=== PATIENT | male | born 1965 | race African-American/Black ===

== ENCOUNTER 2017-12-23 18:27 | Inpatient (IN) | payer OTHER ==
[2017-12-23 19:22] VITALS: BMI 23.8
--- NOTE | 2017-12-23 20:38 | HP ---
Admission [facility] - [facility] Chief Complaint: DEPENDENT ON ETOH, COCAINE, MARIJUANA AND PCP Allergies/Adverse Reactions: Allergies Allergy/AdvReac Type Severity Reaction Status Date / Time banana Allergy Severe Hives Verified 12/23/17 19:14 History of Present Illness: THE PT. CAME FOR H AND PE FOR ADMISSION TO THE REHAB. UNIT. Exam Limitations: No Limitations - Ebola screening Have you traveled outside of the country in the last 21 days: No (N) Have you had contact with anyone from an Ebola affected area: No Have you been sick,other than usual withdrawal symptoms: No Do you have a fever: No - Review of Systems Constitutional: See HPI, Unintentional Wgt. Loss EENT: reports: See HPI Respiratory: reports: See HPI, Wheezing Cardiac: reports: No Symptoms Reported GI: reports: No Symptoms Reported, See HPI : reports: No Symptoms Reported, See HPI Musculoskeletal: reports: See HPI, Muscle Pain, Muscle Weakness Integumentary: reports: See HPI, Sweating Neuro: reports: No Symptoms reported, See HPI Endocrine: reports: See HPI Hematology: reports: See HPI Psychiatric: reports: Judgement Intact, Orientated x3, Anxious Patient History - Patient Medical History Hx Asthma: Yes Hx Seizures: No Hx Human Immunodeficiency Virus (HIV): Yes (DIAGNOSED IN 2002) Hx Hepatitis C: No Hx Depression: Yes (AND ANXIETY) Hx Suicide Attempt: No - Patient Surgical History Past Surgical History: Yes Hx Orthopedic Surgery: Yes (BACK SURGERY IN 2009) - Smoking Cessation Smoking history: Current every day smoker Have you smoked in the past 12 months: Yes Aproximately how many cigarettes per day: 20 Hx Chewing Tobacco Use: No Initiated information on smoking cessation: Yes 'Breaking Loose' booklet given: 12/23/17 - Substance & Tx. History Hx Alcohol Use: Yes Hx Substance Use: Yes Substance Use Type: Alcohol, Cocaine, Marijuana Hx Substance Use Treatment: Yes - Substances Abused Alcohol Route: Oral Frequency: Daily Amount used: BEER [id number]/ LIQUOR A FIFTH/D Age of first use: 23 Date of Last Use: 12/23/17 Cocaine Route: Smoking Frequency: Daily Amount used: $150/D Age of first use: 37 Date of Last Use: 12/23/17 Marijuana/Hashish Route: Smoking Frequency: Daily Amount used: A DIME/D Age of first use: 17 Date of Last Use: 12/23/17 PCP Route: Smoking Frequency: 1-2 times per week Amount used: $40/EACH TIME Age of first use: 18 Date of Last Use: 12/21/17 Family Disease History - Family Disease History Family History: Denies Admission Physical Exam [facility] - Vital Signs Vital Signs: Vital Signs - 24 hr 12/23/17 19:14 Temperature 97.2 F L Pulse Rate 71 Respiratory 16 Rate Blood Pressure 117/76 - Physical General Appearance: Yes: No Apparent Distress, Nourished, Appropriately Dressed , Anxious HEENTM: Yes: Hearing grossly Normal, Normocephalic, Normal Voice, CELE, Pharynx Normal Respiratory: Yes: Chest Non-Tender, Lungs Clear, Normal Breath Sounds, No Respiratory Distress, No Accessory Muscle Use Neck: Yes: No masses,lesions,Nodules, Supple, Trachea in good position Breast: Yes: Breast Exam Deferred, Axillae without masses Cardiology: Yes: Regular Rhythm, Regular Rate, S1, S2 Abdominal: Yes: Normal Bowel Sounds, Non Tender, Flat, Soft Back: Yes: Normal Inspection Musculoskeletal: Yes: full range of Motion, Gait Steady, Pelvis Stable Extremities: Yes: Normal Capillary Refill, Normal Range of Motion, Non-Tender Neurological: Yes: datacap developer II-XII NML intact, Fully Oriented, Alert, Motor Strength 5/5, Normal Mood/Affect, Normal Response Integumentary: Yes: Warm, Moist Lymphatic: Yes: Within Normal Limits - Diagnostic (1) EtOH dependence Current Visit: Yes Status: Chronic Qualifiers: Substance use status: uncomplicated Qualified Code(s): F10.20 - Alcohol dependence, uncomplicated (2) Cocaine dependence Current Visit: Yes Status: Chronic Qualifiers: Substance use status: uncomplicated Qualified Code(s): F14.20 - Cocaine dependence, uncomplicated (3) Cannabis dependence Current Visit: Yes Status: Chronic (4) Nicotine dependence Current Visit: Yes Status: Chronic Qualifiers: Nicotine product type: cigarettes (5) PCP dependence Current Visit: Yes Status: Chronic (6) AIDS Current Visit: Yes Status: Chronic (7) Anxiety and depression Current Visit: Yes Status: Chronic (8) Asthma Current Visit: Yes Status: Chronic Qualifiers: Asthma severity: unspecified severity Cleared for Admission [facility] - Detox or Rehab Claeared for Rehab Admission: Yes [facility] Breath Alcohol Content Breath Alcohol Content: 0 Urine Drug Screen - Results Drug Screen Negative: No Urine Drug Screen Results: THC-Marijuana, SRI-Cocaine, PCP-Phencyclidine Inpatient Rehab Admission - Initial Determination Free of communicable disease: No - Rehab Admission Criteria Previous failed treatment: No Poor recovery environment: No Comorbidities: No Lacks judgement: No Patient is meeting Inpatient Rehab admission criteria:: Yes
[2017-12-23] MEDS ORDERED: P-EPHED 60MG/TRIPROLIDI 2.5MG TABLET PO PRN (20:47)
[2017-12-23] MEDS ORDERED: MENTHOL/PHENOL 1 EACH UD MM PRN (20:47)
[2017-12-23] MEDS ORDERED: LOPERAMIDE HCL 2 MG CAPSULE PO PRN (20:47)
[2017-12-23] MEDS ORDERED: MAGNESIUM CITRATE 300 ML BOTTLE PO PRN (20:47)
[2017-12-23] MEDS ORDERED: MAGNESIUM HYDROX 2400MG/30ML ORAL SUSPENSION 30 ML CUP PO PRN (20:47)
[2017-12-23] MEDS ORDERED: MAG HYDROX/AL HYDROX/SIMETH 30 ML UNIT-DOSE CUP PO PRN (20:47)
[2017-12-23] MEDS ORDERED: NICOTINE POLACRILEX 4 MG GUM BC PRN (20:47)
[2017-12-23] MEDS ORDERED: ACETAMINOPHEN 325 MG TABLET (FP) PO PRN (20:47)
[2017-12-23] MEDS ORDERED: IBUPROFEN 400 MG TABLET (FP) PO PRN (20:47)
[2017-12-23] MEDS ORDERED: guaiFENesin/D-METHORPHAN HB 10 ML UNIT-DOSE CUPS PO PRN (20:47)
[2017-12-23] MEDS ORDERED: ALBUTEROL SO4 2.5/IPRATROPIUM 0.5 INH SOL 3 ML VIAL.NEB. NEB PRN (20:49)
[2017-12-24] MEDS: THIAMINE HCL 100 MG TABLET (FP) PO SCH ×2 (00:02→21:28)
[2017-12-24 09:46] LABS: HEMATOCRIT 38.3 % (35.4-49); HEMOGLOBIN 12.7 GM/dL (11.7-16.9); MCH 31.9 pg (25.7-33.7); MCHC 33.2 g/dl (32.0-35.9); MEAN CELL VOLUME 95.9 fl (80-96); MEAN PLT VOLUME 9.5 fl (7.5-11.1); PLATELET COUNT 217 K/MM3 (134-434); RBC 3.99 M/mm3 (4.00-5.60); RDW 14.5 % (11.9-15.9)
[2017-12-24] MEDS: PRENATAL VITAMINS W/ FOLIC ACID TABLET (FP) PO SCH (10:13)
[2017-12-24] MEDS: NICOTINE 21 MG/24 HOURS TOPICAL PATCH TD SCH (10:13)
[2017-12-24] MEDS: ALBUTEROL SO4 8 GM HFA INHALER IH PRN (10:57)
[2017-12-24 10:59] LABS: ALBUMIN 3.1 g/dl (3.4-5.0); ALK PHOS 61 U/L (45-117); ANION GAP 4 (8-16); BILIRUBIN,TOTAL 0.3 mg/dL (0.2-1.0); BLOOD UREA NITROGEN 12 mg/dL (7-18); CHLORIDE 107 mmol/L (98-107); CO2 33 mmol/L (21-32); GLUCOSE,RANDOM 84 mg/dL (74-106); POTASSIUM 3.9 mmol/L (3.5-5.1); SGOT/AST 16 U/L (15-37); SGPT/ALT 17 U/L (12-78); SODIUM 144 mmol/L (136-145)
--- NOTE | 2017-12-24 11:29 | EKG ---
Test Reason : Blood Pressure : / mmHG Vent. Rate : 059 BPM Atrial Rate : 059 BPM P-R Int : 184 ms QRS Dur : 100 ms QT Int : 410 ms P-R-T Axes : 066 079 068 degrees QTc Int : 405 ms SINUS BRADYCARDIA WITH MARKED SINUS ARRHYTHMIA OTHERWISE NORMAL ECG NO PREVIOUS ECGS AVAILABLE Confirmed by MD ANASTASIA, CEE ([id number]) on 12/24/2017 11:28:46 AM Referred By: Confirmed By:CEE OCONNOR MD
--- NOTE | 2017-12-24 12:31 | HP ---
Psychiatrist Admission - Data Date of interview: 12/24/17 Admission source: [facility] Identifying data: Patient is a 52 year old single male, without kids, domiciled , unemployed, and supported by Welfare. This is patient's first admission to rehab at [facility]. admitted to for alcohol and cocaine/crack dependence. Medical History: HIV, Asthma, Back surgery in 2009 Psychiatric History: Patient denies h/o psychiatric hospitalization, outpatient care, and suicide attempt. Physical/Sexual Abuse/Trauma History: Denies. Additional Comment: Patient reports 7.5 years of incarceration for distribution of crack/cocaine Vital Signs: Vital Signs - 24 hr 12/23/17 12/24/17 12/24/17 19:14 00:30 03:30 Temperature 97.2 F L Pulse Rate 71 Respiratory 16 18 18 Rate Blood Pressure 117/76 12/24/17 06:57 Temperature 96.0 F L Pulse Rate 64 Respiratory 18 Rate Blood Pressure 129/92 Allergies/Adverse Reactions: Allergies Allergy/AdvReac Type Severity Reaction Status Date / Time banana Allergy Severe Hives Verified 12/23/17 19:14 Date of last physical exam: 12/24/17 Concur with the findings of this exam: Yes - Substance Abuse/Tx History Hx Alcohol Use: Yes (6 beers per day) Hx Substance Use: Yes (Crack $40 daily) Substance Use Type: Cocaine Hx Substance Use Treatment: Yes ([facility] in September of 2017) Mental Status Exam - Mental Status Exam Alert and Oriented to: Time, Place, Person Cognitive Function: Good Patient Appearance: Well Groomed Mood: Euthymic Affect: Mood Congruent Patient Behavior: Appropriate Speech Pattern: Appropriate Voice Loudness: Moderately Soft/Quiet Thought Process: Intact, Goal Oriented Thought Disorder: Not Present Hallucinations: Denies Suicidal Ideation: Denies Homicidal Ideation: Denies Insight/Judgement: Poor Sleep: Fair Appetite: Fair Muscle strength/Tone: Normal Gait/Station: Normal Psychiatric Findings - Problem List ([place] 1, 2,3) (1) Alcohol dependence Current Visit: Yes Status: Acute (2) Cannabis dependence Current Visit: Yes Status: Chronic (3) Cocaine dependence Current Visit: Yes Status: Chronic Qualifiers: Substance use status: uncomplicated Qualified Code(s): F14.20 - Cocaine dependence, uncomplicated (4) Nicotine dependence Current Visit: Yes Status: Chronic Qualifiers: Nicotine product type: cigarettes (5) AIDS Current Visit: Yes Status: Chronic (6) Asthma Current Visit: Yes Status: Chronic Qualifiers: Asthma severity: unspecified severity (7) Substance induced mood disorder Current Visit: Yes Status: Acute - Initial Treatment Plan Initial Treatment Plan: Psycheducation provided. Rehab in progress. Observation.
[2017-12-24] MEDS: ELVITEG/COB/EMTRI/TENOFO (STRIBILD) TABLET -NF PO SCH ×2 (15:12→16:42)
[2017-12-24] MEDS: MELATONIN 5 MG TABLETS PO PRN (21:28)
[2017-12-24] MEDS: hydrOXYzine PAMOATE 25 MG CAPSULE (FP) PO PRN (21:28)
[2017-12-25] MEDS: NICOTINE 21 MG/24 HOURS TOPICAL PATCH TD SCH (10:07)
[2017-12-25] MEDS: PRENATAL VITAMINS W/ FOLIC ACID TABLET (FP) PO SCH (10:07)
[2017-12-25] MEDS: ELVITEG/COB/EMTRI/TENOFO (STRIBILD) TABLET -NF PO SCH (10:07)
[2017-12-25] MEDS: hydrOXYzine PAMOATE 25 MG CAPSULE (FP) PO PRN (21:38)
[2017-12-25] MEDS: THIAMINE HCL 100 MG TABLET (FP) PO SCH (21:38)
[2017-12-25] MEDS: MELATONIN 5 MG TABLETS PO PRN (21:38)
[2017-12-26] MEDS: ELVITEG/COB/EMTRI/TENOFO (STRIBILD) TABLET -NF PO SCH (10:13)
[2017-12-26] MEDS: PRENATAL VITAMINS W/ FOLIC ACID TABLET (FP) PO SCH (10:13)
[2017-12-26] MEDS: NICOTINE 21 MG/24 HOURS TOPICAL PATCH TD SCH (10:14)
[2017-12-26] MEDS: MELATONIN 5 MG TABLETS PO PRN (21:03)
[2017-12-26] MEDS: THIAMINE HCL 100 MG TABLET (FP) PO SCH (21:03)
[2017-12-26] MEDS: hydrOXYzine PAMOATE 25 MG CAPSULE (FP) PO PRN (21:05)
[2017-12-27] MEDS ORDERED: PT OWN MED DRAWER 7, Y5N ONE (08:58)
[2017-12-27] MEDS: ELVITEG/COB/EMTRI/TENOFO (STRIBILD) TABLET -NF PO SCH (09:43)
[2017-12-27] MEDS: PRENATAL VITAMINS W/ FOLIC ACID TABLET (FP) PO SCH (09:43)
[2017-12-27] MEDS: NICOTINE 21 MG/24 HOURS TOPICAL PATCH TD SCH (09:44)
[2017-12-27] MEDS: THIAMINE HCL 100 MG TABLET (FP) PO SCH (21:11)
[2017-12-27] MEDS: hydrOXYzine PAMOATE 25 MG CAPSULE (FP) PO PRN (21:13)
[2017-12-28] MEDS: NICOTINE 21 MG/24 HOURS TOPICAL PATCH TD SCH (09:35)
[2017-12-28] MEDS: PRENATAL VITAMINS W/ FOLIC ACID TABLET (FP) PO SCH (09:35)
[2017-12-28] MEDS: ELVITEG/COB/EMTRI/TENOFO (STRIBILD) TABLET -NF PO SCH (09:35)
[2017-12-28] MEDS: hydrOXYzine PAMOATE 25 MG CAPSULE (FP) PO PRN (21:25)
[2017-12-28] MEDS: THIAMINE HCL 100 MG TABLET (FP) PO SCH (21:25)
[2017-12-28] MEDS: MELATONIN 5 MG TABLETS PO PRN (21:26)
[2017-12-29 06:49] VITALS: BP 120/72; PULSE 51; TEMP 98
[2017-12-29] MEDS: ELVITEG/COB/EMTRI/TENOFO (STRIBILD) TABLET -NF PO SCH (09:51)
[2017-12-29] MEDS: PRENATAL VITAMINS W/ FOLIC ACID TABLET (FP) PO SCH (09:51)
[2017-12-29] MEDS: ALBUTEROL SO4 8 GM HFA INHALER IH PRN (09:53)
[2017-12-29] MEDS: NICOTINE 21 MG/24 HOURS TOPICAL PATCH TD SCH (09:53)
[2017-12-29] MEDS: hydrOXYzine PAMOATE 25 MG CAPSULE (FP) PO PRN (21:19)
[2017-12-29] MEDS: THIAMINE HCL 100 MG TABLET (FP) PO SCH (21:19)
[2017-12-29] MEDS: MELATONIN 5 MG TABLETS PO PRN (21:19)
== END 2017-12-29 23:09 | disposition left against medical advice (07) | DRG 770 ==
LOC: YASAS 18:27 → Y3W 21:10
PROVIDERS: ADMIT Psychiatry & Neurology Psychiatry; ATTEND Psychiatry & Neurology Psychiatry
PROC: HZ42ZZZ Group Counseling for Substance Abuse Treatment, Cognitive-Behavioral (ICD-10-PCS; principal; 2017-12-23)
DX: F10.20 Alcohol dependence, uncomplicated (principal); F14.20 Cocaine dependence, uncomplicated; F12.20 Cannabis dependence, uncomplicated; F16.20 Hallucinogen dependence, uncomplicated; F17.210 Nicotine dependence, cigarettes, uncomplicated; B20 Human immunodeficiency virus [HIV] disease; F19.24 Other psychoactive substance dependence with psychoactive substance-induced mood disorder; F41.8 Other specified anxiety disorders; J45.909 Unspecified asthma, uncomplicated
CPT/HCPCS: 36415; 71046-TC-FY; 80053; 85027; 86593; 93005; 93010